=== PATIENT | male | born 1985 | race Caucasian/White ===

== ENCOUNTER 2019-05-01 23:24 | Emergency (ER) | payer OTHER ==
[~2019-05-01] VITALS: Ht 180.3 cm; Wt 102.5 kg
[2019-05-01 23:32] VITALS: Ht 180.3 cm; Wt 102.5 kg
[2019-05-02 01:47] VITALS: BP 126/76
== END 2019-05-01 23:32 | disposition home or self-care (01) ==
LOC: ED 23:24
DX: S29.011A Strain of muscle and tendon of front wall of thorax, initial encounter (principal); J40 Bronchitis, not specified as acute or chronic; X58.XXXA Exposure to other specified factors, initial encounter; Y93.89 Activity, other specified; Y92.89 Other specified places as the place of occurrence of the external cause; Y99.8 Other external cause status